=== PATIENT | male | born 1955 | race Caucasian/White ===

== ENCOUNTER 2016-09-10 01:28 | Emergency (ER) | payer MEDICARE ==
[~2016-09-10] VITALS: Ht 180.3 cm; Wt 113.1 kg
--- NOTE | ~2016-09-10 | CR141 ---
[facility] A Service of [facility] & [facility] RADIOLOGY TEXT RESULTS PATIENT: JEFFERY MONTEJO LOCATION: [facility] : 59 UNIT #: [id number] AGE: [address]: Domingo Pepe SEX: M ORDER DR: [id number] [facility] [address] [place], [place] [address] [id number] E MR#: [id number] Acc #: [id number] NAME: JEFFERY MONTEJO : 1955 SEX: M STUDY DATE/TIME: 09/10/2016 2:09 UNIT: [facility] ROOM: STUDY DESCRIPTION: CR Hand Min 3 Views Lt Attending Physician: Domingo Pepe P.A.-C. Ordering Physician: Domingo Pepe P.A.-C. Primary Care Physician: Nain Rojo M.D. MEDICAL IMAGING REPORT This report is preliminary unless electronic signature is present EXAM Left hand series. INDICATIONS Laceration to the second and third digits. Observation for foreign body. PROCEDURE Three views of the left hand. COMPARISON None. FINDINGS No acute bone injury. There is a tiny radiodense foreign body in the soft tissues along the lateral aspect proximal phalanx of the second digit. IMPRESSION 1. Tiny radiodense foreign body in the soft tissues along the lateral aspect of the proximal phalanx of the second digit. 2. No acute bone injury. Dictated by... John Schuler M.D. THIS IS AN ELECTRONICALLY VERIFIED REPORT John Schuler M.D. at 09/10/2016 9:58 PM EED/annmarie TD: 09/10/2016 10:10 JOB #: [id number] MEDICAL IMAGING REPORT Page 1 of 1 COPY
[~2016-09-10 01:28] MED LIST: BAYER CHEWABLE81 MG PO; CARVEDILOL3.125 MG PO; COUMADIN5 MG PO; COUMADIN7.5 MG PO; FENOFIBRATE54 MG PO; FLEXERIL PO; HYDROCODON-ACE1 EAC7 PO; IBUPROFEN PO; KEFLEX PO; LASIX PO; LORTAB 5-325 M1 EACH PO; LORTAB 5/500 TA1 TA1 PO; PRINIVIL5 MG PO; Q-PAP325 MG PO; TYLOX 5/500 CAP1 CAP PO; [UNRECOGNIZED DRUG - CODE] PO
== END 2016-09-10 03:10 | disposition home or self-care (01) ==
LOC: CED 01:28
DX: S61.211A Laceration without foreign body of left index finger without damage to nail, initial encounter (principal); S61.213A Laceration without foreign body of left middle finger without damage to nail, initial encounter; I10 Essential (primary) hypertension; I48.91 Unspecified atrial fibrillation; F17.210 Nicotine dependence, cigarettes, uncomplicated; Z23 Encounter for immunization; Z79.01 Long term (current) use of anticoagulants; Z79.82 Long term (current) use of aspirin; Z79.899 Other long term (current) drug therapy; W25.XXXA Contact with sharp glass, initial encounter; Y92.009 Unspecified place in unspecified non-institutional (private) residence as the place of occurrence of the external cause
CPT/HCPCS: 12001; 73130; 90471; 90715; 99283